=== PATIENT | male | born 2000 | race African-American/Black ===

== ENCOUNTER 2022-02-20 04:55 | Emergency (ER) | payer OTHER ==
[~2022-02-20] VITALS: Ht 182.9 cm; Wt 72.6 kg
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
--- NOTE | 2022-02-20 05:29 | NUR ---
Patient discharged to [employer] Custody in stable condition. Written and verbal after care instructions given. Patient verbalizes understanding of instruction. pt ambulatory with a steady gait
[2022-02-20] MEDS ORDERED: TDAP [DIPH/PERTUSSIS/TET] 0.5 ML VIAL IM ONE (05:30)
[2022-02-20 06:17] VITALS: BP 130/81
== END 2022-02-20 05:29 ==
LOC: ER 05:00
DX: S61.512A Laceration without foreign body of left wrist, initial encounter (principal); W25.XXXA Contact with sharp glass, initial encounter; Y93.89 Activity, other specified; Y92.89 Other specified places as the place of occurrence of the external cause; Y99.8 Other external cause status

== ENCOUNTER 2022-05-27 17:36 | Emergency (ER) | payer SELFPAY ==
[~2022-05-27] VITALS: Ht 190.5 cm; Wt 77.1 kg
[2022-05-27] MEDS ORDERED: IBUPROFEN 600 MG TABLET ONE (18:18)
[2022-05-27] MEDS ORDERED: IBUPROFEN 600 MG TABLET PO ONE (18:30)
[2022-05-27] MEDS ORDERED: IBUP-1955 PO (19:49)
--- NOTE | 2022-05-27 19:56 | NUR ---
Patient discharged to home in stable condition. Written and verbal after care instructions given. Patient verbalizes understanding of instruction.
[2022-05-28 02:33] VITALS: BP 128/70
== END 2022-05-27 20:00 | disposition home or self-care (01) ==
LOC: ER 18:26
DX: S16.1XXA Strain of muscle, fascia and tendon at neck level, initial encounter (principal); V49.59XA Passenger injured in collision with other motor vehicles in traffic accident, initial encounter; Y93.89 Activity, other specified; Y92.413 State road as the place of occurrence of the external cause; Y99.8 Other external cause status
CPT/HCPCS: 70450-TC; 72125-TC